=== PATIENT | male | born 1980 | race Caucasian/White ===

== ENCOUNTER 2020-02-04 17:14 | Emergency (ER) | payer OTHER, SELFPAY ==
[2020-02-04 17:15] VITALS: BP 145/87; PULSE 84; RESP 18; TEMP 36.1; O2SAT 97; BMI 31.4
--- NOTE | 2020-02-04 17:25 | ED.VIS.GEN ---
History of Present Illness Chief Complaint: Laceration Narrative: This is a 39-year-old male who presents with a finger laceration. He was working on his steps at home and cut himself with a tool on the back of his right index finger. This occurred about 3-1/2 hours ago. He is up-to-date on immunizations and reports that he has had a tetanus shot last 5 years. No numbness tingling weakness or loss of function. He denies medical history or recent illness and review of systems is otherwise negative. Past Medical History - Allergies and Home Meds Allergies/Adverse Reactions: Allergies No Known Allergies Allergy (Verified 02/04/20 17:46) Primary Care Physician: Care Physician,No Primary [Primary Care Provider] - Past Medical History: None Review of Systems All systems negative except as indicated General: Denies: Fever Eyes: Denies: Visual changes - bilaterally ENT: Denies: Bilateral ear pain Cardiovascular: Denies: Chest pain Respiratory: Denies: Dyspnea Gastrointestinal: Denies: Abdominal pain, Nausea, Vomiting Musculoskeletal: Denies: Myalgias, Arthralgias Skin: Denies: Rash Neurological: Denies: Headache Physical Exam Vital Signs/Narrative: Vital Signs Temp Pulse Resp BP Pulse Ox 02/04/20 17:15 97 F L 84 18 145/87 H 97 Inital Vital Signs reviewed: Yes General: Well nourished Head: Normocephalic Eyes: EOMI ENT: Moist mucous membranes Neck: Supple Cardiovascular: Regular rate Respiratory: No distress Extremities: - - Laceration 2.5 cm on the back of the right index finger overlying the proximal phalanx normal flexion and extension of the digits normal sensation distally brisk capillary refill Skin: Normal color Neurological: Alert Psychological: Normal affect Diagnostic/Tx/Re-eval - Medical Decision Making Patient was anesthetized utilizing a digital block with 6 cc of 1% lidocaine without epinephrine. Good anesthesia was achieved. Wound was cleansed with sterile saline. A total of 5 simple interrupted 5?0 nonabsorbable sutures were placed. Patient was placed in a aluminum foam finger splint as the laceration crosses the joint to keep this in extension. Patient advised on local wound care. He was advised on signs and symptoms of infection to monitor for and understands to return for new or worsening symptoms or development of any signs of infection otherwise he will follow-up as an outpatient and he was discharged home. ED Disposition - Plan for ED Patient: Disposition: Home or Assisted Living Diagnosis: Finger laceration Instructions: ED Laceration Hand Referrals: Care Physician,No Primary [Primary Care Provider] -
== END 2020-02-04 18:34 | disposition home or self-care (01) ==
LOC: ED 18:31
PROVIDERS: Emergency Provider Emergency Medicine
DX: S61.210A Laceration without foreign body of right index finger without damage to nail, initial encounter (principal); X83.8XXA Intentional self-harm by other specified means, initial encounter
CPT/HCPCS: 12001; 99284